=== PATIENT | female | born 1955 | race African-American/Black ===

== ENCOUNTER 2025-02-10 09:47 | Inpatient (IN) | payer MEDICARE ==
[~2025-02-10] VITALS: Ht 175.3 cm; Wt 127.0 kg
[~2025-02-10 09:47] MED LIST: LOSARTAN POTASS25 MG PO; METFORMIN HCL500 MG PO
[2025-02-10] MEDS: DIPHENHYDRAMINE HCL INJ 50 MG/ML VIAL IV STA (10:37)
[2025-02-10 10:53] LABS: BASOPHILS % 0.4 % (0.0-1.0); EOSINOPHILS % 3.2 % (0.0-6.0); LYMPHOCYTES % 20.0 % (18.0-39.1); MONOCYTES % 7.3 % (4.4-11.3); NEUTROPHILS % 68.7 % (38.7-80.0); RED CELL DISTRIBUTION WIDTH 12.6 % (11.7-14.4)
[2025-02-10 11:15] LABS: EST GLOMERULAR FILTRATION RATE 80.0 ML/MIN (>=60)
[2025-02-10] MEDS ORDERED: IOPAMIDOL 370 MG/ML 100 ML INFUS..BTL INJ ONE (11:29)
[2025-02-10 12:23] LABS: LEUKOCYTE ESTERASE ,URINE TRACE (NEGATIVE); PROTEIN,URINE DIPSTICK 1+ (NEGATIVE); URINE UROBILINOGEN 0.2 mg/dL (0.2 - 1)
[2025-02-10 12:36] LABS: WBC,URINE (MAN) >50 /HPF (0-5)
[2025-02-10 12:37] LABS: EPITHELIAL CELLS,URINE MODERATE /LPF
[2025-02-10 13:00] LABS: PLATELET ESTIMATE ADEQUATE; PLATELET MORPHOLOGY COMMENT FEW EDTA CLUMPING; RBC MORPHOLOGY COMMENT NORMAL
[2025-02-10] MEDS: SODIUM CHLORIDE 0.9% 1000ML 1,000 ML IV SCH (13:35)
[2025-02-10] MEDS: DIPHENHYDRAMINE HCL INJ 50 MG/ML VIAL IV PRN (14:05)
[2025-02-10] MEDS: INSULIN LISPRO 100 UNIT/1 ML 3ML VIAL SQ SCH (21:00)
[2025-02-10] MEDS ORDERED: DEXTROSE 50% SYRINGE 50 ML IV PRN (21:00)
[2025-02-10 22:05] VITALS: PULSE 87; RESP 16; TEMP 98.8
[2025-02-10 22:15] VITALS: BP 140/77; PULSE 80; RESP 17; TEMP 98; O2SAT 99
[2025-02-11] VITALS (8 sets, daily range): BP systolic 107–166; BP diastolic 66–82; PULSE 67–83; RESP 17–20; TEMP 97.7–98.1; O2SAT 98–100
[2025-02-11 08:05] LABS: BASOPHILS % 0.4 % (0.0-1.0); EOSINOPHILS % 8.2 % (0.0-6.0); LYMPHOCYTES % 25.1 % (18.0-39.1); MONOCYTES % 11.3 % (4.4-11.3); NEUTROPHILS % 54.9 % (38.7-80.0); RED CELL DISTRIBUTION WIDTH 12.7 % (11.7-14.4)
[2025-02-11 08:35] LABS: EST GLOMERULAR FILTRATION RATE 90.0 ML/MIN (>=60)
[2025-02-11] MEDS: METFORMIN HCL 500 MG TAB PO SCH (09:02)
[2025-02-11] MEDS: LOSARTAN POTASSIUM 25 MG TAB PO SCH (09:03)
[2025-02-11] MEDS: ONDANSETRON HCL INJ 2MG/ML 2ML 2 MG/ML VIAL IV PRN (09:03)
[2025-02-11] MEDS: Morphine 4mg INJECTION 4 MG/ML INJ IV PRN (09:04)
[2025-02-11] MEDS: ENOXAPARIN SOD INJ 40 MG/0.4 ML SYR SC SCH (16:48)
[2025-02-11] MEDS: METHYLPREDNISOLONE SOD SUCC 40 MG/ML VIAL 1ML IV SCH (20:25)
[2025-02-12 06:54] LABS: BASOPHILS % 0.1 % (0.0-1.0); EOSINOPHILS % 0.1 % (0.0-6.0); LYMPHOCYTES % 15.3 % (18.0-39.1); MONOCYTES % 1.9 % (4.4-11.3); NEUTROPHILS % 82.3 % (38.7-80.0); RED CELL DISTRIBUTION WIDTH 12.8 % (11.7-14.4)
[2025-02-12 07:22] LABS: EST GLOMERULAR FILTRATION RATE 82.0 ML/MIN (>=60)
[2025-02-12 08:00] VITALS: BP 159/88; PULSE 82; RESP 18; TEMP 97.6; O2SAT 98
[2025-02-12 08:20] VITALS: BP 159/88; PULSE 82; RESP 18; TEMP 97.6; O2SAT 98
[2025-02-12] MEDS ORDERED: HYDROCORTISONE 1% CREAM 30 GM TUBE TOP PRN (09:30)
[2025-02-12] MEDS: HYDROCORTISONE .5% 30 GM TUBE TOP PRN (11:37)
[2025-02-12 12:00] VITALS: BP 147/81; PULSE 80; RESP 18; TEMP 98; O2SAT 98
[2025-02-12 16:31] VITALS: BP 156/86; PULSE 86; RESP 18; TEMP 97.8; O2SAT 99
[2025-02-12 20:00] VITALS: BP 145/95; PULSE 96; RESP 18; TEMP 98.7; O2SAT 100
[2025-02-12] MEDS: CLINDAMYCIN 600MG / 50ML 50 ML IV SCH (22:00)
[2025-02-12 22:16] VITALS: BP 145/95; PULSE 96; RESP 18; TEMP 98.7; O2SAT 100
[2025-02-13] VITALS: BP 131/73; PULSE 86; RESP 18; TEMP 98.3; O2SAT 99
[2025-02-13 05:25] VITALS: BP 169/95; PULSE 75; RESP 18; TEMP 97.6; O2SAT 98
[2025-02-13 08:00] VITALS: BP 154/74; PULSE 154; TEMP 98.1
[2025-02-13 09:18] VITALS: BP 154/74; PULSE 84; RESP 20; TEMP 98.1; O2SAT 98
[2025-02-13 13:23] VITALS: BP 150/79; PULSE 79
[2025-02-13 16:30] VITALS: BP 174/92; PULSE 79; RESP 19; TEMP 97.4; O2SAT 99
== END 2025-02-13 17:30 | disposition home or self-care (01) | DRG 603 ==
LOC: ER 09:54 → ERHOLD 12:56 → MED/SURG3 22:15 → OBSVTOIN 02-11 18:42
PROVIDERS: ADMIT Family Medicine; ATTEND Family Medicine
DX: L03.211 Cellulitis of face (principal); E11.9 Type 2 diabetes mellitus without complications; I10 Essential (primary) hypertension; E78.5 Hyperlipidemia, unspecified; A46 Erysipelas; L23.5 Allergic contact dermatitis due to other chemical products; R19.7 Diarrhea, unspecified; J32.0 Chronic maxillary sinusitis; M17.0 Bilateral primary osteoarthritis of knee; Z79.84 Long term (current) use of oral hypoglycemic drugs; Z91.041 Radiographic dye allergy status; Z88.8 Allergy status to other drugs, medicaments and biological substances; Z83.3 Family history of diabetes mellitus; Z82.49 Family history of ischemic heart disease and other diseases of the circulatory system
CPT/HCPCS: 36415; 70487; 80053; 81001; 82948; 83036; 83518; 84443; 85025; 87070; 99284; G0378; J1200; J1650; J2270; J2405; J2543; J2919; J7030; Q9967

== ENCOUNTER 2025-04-11 11:13 | Emergency (ER) | payer MEDICARE ==
[~2025-04-11] VITALS: Ht 175.3 cm; Wt 127.0 kg
[2025-04-11 14:08] LABS: BASOPHILS % 0.2 % (0.0-1.0); EOSINOPHILS % 0.1 % (0.0-6.0); LYMPHOCYTES % 6.5 % (18.0-39.1); MONOCYTES % 6.2 % (4.4-11.3); NEUTROPHILS % 86.6 % (38.7-80.0); RED CELL DISTRIBUTION WIDTH 12.2 % (11.7-14.4)
[2025-04-11] MEDS ORDERED: SODIUM CHLORIDE 0.9% 1000ML 1,000 ML ONE (14:11)
[2025-04-11] MEDS ORDERED: DICYCLOMINE HCL 20 MG/2 ML VIAL IM ONE (14:11)
[2025-04-11 14:27] LABS: EST GLOMERULAR FILTRATION RATE 78.0 ML/MIN (>=60)
[2025-04-11 14:36] LABS: LEUKOCYTE ESTERASE ,URINE SMALL (NEGATIVE); PROTEIN,URINE DIPSTICK NEGATIVE (NEGATIVE)
[2025-04-11 14:37] LABS: URINE UROBILINOGEN 0.2 mg/dL (0.2 - 1)
[2025-04-11 14:41] LABS: WBC,URINE (MAN) >50 /HPF (0-5)
[2025-04-11 14:42] LABS: EPITHELIAL CELLS,URINE MODERATE /LPF
[2025-04-11] MEDS: SODIUM CHLORIDE 0.9% 1000ML 1,000 ML IV STA (14:43)
[2025-04-11] MEDS: DICYCLOMINE HCL 20 MG/2 ML VIAL IM ONE (14:44)
[2025-04-11] MEDS: ONDANSETRON HCL INJ 2MG/ML 2ML 2 MG/ML VIAL IV PRN (14:44)
[2025-04-11] MEDS ORDERED: IOPAMIDOL 370 MG/ML 100 ML INFUS..BTL INJ ONE (16:28)
[2025-04-11 16:30] VITALS: PULSE 86; RESP 16
[2025-04-11] MEDS ORDERED: CEFDINIR300 MG PO (16:59)
[2025-04-11 17:55] VITALS: TEMP 98.7; O2SAT 98
== END 2025-04-11 18:24 | disposition home or self-care (01) ==
LOC: ER 11:24
DX: R10.30 Lower abdominal pain, unspecified (principal); N39.0 Urinary tract infection, site not specified; I10 Essential (primary) hypertension; E11.65 Type 2 diabetes mellitus with hyperglycemia; E78.5 Hyperlipidemia, unspecified; D25.9 Leiomyoma of uterus, unspecified
CPT/HCPCS: 36415; 74177; 80053; 81001; 83690; 85025; 87086; 87186; 99284; J0500; J0696; J2405; J7030; Q9967